=== PATIENT | female | born 1975 | race Caucasian/White ===

== ENCOUNTER 2024-08-11 20:20 | Emergency (ER) | payer OTHER ==
[~2024-08-11] VITALS: Ht 157.5 cm; Wt 81.2 kg
[2024-08-11 20:43] VITALS: BP 122/74; PULSE 69; RESP 16; O2SAT 100
[2024-08-11 21:34] VITALS: TEMP 98
[2024-08-11] MEDS: ACETAMINOPHEN 325MG TABLET PO STA (21:34)
[2024-08-11 21:55] LABS: BASOPHILS % 0.5 % (0.0-2.0); EOSINOPHILS % 1.9 % (0.0-5.0); HEMATOCRIT. 40.8 % (36.0-48.0); HEMOGLOBIN. 13.4 g/dL (12.0-16.0); LYMPHOCYTES % 21.6 % (20.0-50.0); MEAN CORPUSCULAR HEMOGLOBIN 29.1 pg (28.0-32.0); MEAN CORPUSCULAR HGB CONC 32.8 g/dL (31.0-37.0); MEAN PLATELET VOLUME 7.7 fl (7.4-10.4); MONOCYTES % 7.4 % (2.0-8.0); NEUTROPHILS % 68.6 % (40.0-76.0); PLATELET 271 x1000/uL (130-400); RED BLOOD CELL COUNT 4.59 mill/uL (4.2-5.4); RED CELL DISTRIBUTION WIDTH 14.4 % (11.6-14.6); WHITE BLOOD COUNT 6.7 x1000/uL (4.5-11.0)
[2024-08-11 22:01] LABS: CHLORIDE 107 mEq/L (98-107); POTASSIUM 3.7 mEq/L (3.5-5.1); SODIUM 142 mEq/L (136-145)
[2024-08-11 22:02] LABS: CARBON DIOXIDE 28 mEq/L (21-32)
[2024-08-11 22:03] LABS: CALCIUM 9.5 mg/dL (8.7-10.4); PROTHROMBIN TIME 10.7 sec (9.6-11.0)
[2024-08-11 22:07] LABS: CREATININE 0.9 mg/dL (0.6-1.0)
[2024-08-11 22:08] LABS: GLUCOSE 110 mg/dL (70-105); UREA NITROGEN BLOOD 14 mg/dL (9-23)
[2024-08-11 22:24] LABS: TROPONIN I HIGH SENSITIVITY < 4 ng/L (3.0-34)
[2024-08-12 00:52] LABS: TROPONIN I HIGH SENSITIVITY < 4 ng/L (3.0-34)
[2024-08-12] MEDS ORDERED: ACET-2708 MT (01:02)
== END 2024-08-12 01:18 | disposition home or self-care (01) ==
LOC: ER 20:20
DX: S00.83XA Contusion of other part of head, initial encounter (principal); R51.9 Headache, unspecified; W01.0XXA Fall on same level from slipping, tripping and stumbling without subsequent striking against object, initial encounter; Y93.89 Activity, other specified; Y92.89 Other specified places as the place of occurrence of the external cause; Y99.8 Other external cause status
CPT/HCPCS: 36415; 71045; 80048; 84484; 85025; 86850; 86900; 93005; 99285